=== PATIENT | male | born 1950 | race Caucasian/White ===

== ENCOUNTER → 2019-05-14 | Outpatient (CLI) | payer MEDICARE ==
--- NOTE | 2019-05-14 17:37 | RAD ---
MR of the left shoulder HISTORY: Left shoulder contusion. TECHNIQUE: Routine multiplanar sequences are obtained. COMPARISON: None FINDINGS: Acromioclavicular joint is mildly degenerative. Rotator cuff tendinosis with thickening and signal. Partial-thickness articular side tear of the supraspinatus tendon has a linear morphology, measuring about 1 cm AP diameter and at least 90% of the rotator cuff thickness, coronal images 13 through 16. No retraction. Bursal surface irregularity/fraying. Subscapularis tendinosis with partial tearing. Trace subdeltoid bursal effusion. Abnormal signal involving most of the labrum, compatible with a circumferential or nearly circumferential degeneration and tearing. Biceps tendinosis. Cystic-type changes identified at the humeral head and greater tuberosity, likely reactive or degenerative. No aggressive bone destruction. No acute fracture. No acute soft tissue abnormality. IMPRESSION: 1. Generalized rotator cuff tendinosis. Very deep articular side tear of the anterior supraspinatus tendon, possibly full-thickness, but without retraction partial subscapularis tendon tear. 2. Circumferential or nearly circumferential labral degeneration and tearing. Electronically signed by: Josh Wheeler MD (05/14/2019 5:34 PM) [facility]
== END | disposition home or self-care (01) ==
LOC: MRI 15:01
PROVIDERS: ATTEND Orthopaedic Surgery
DX: S46.012A Strain of muscle(s) and tendon(s) of the rotator cuff of left shoulder, initial encounter (principal); M19.012 Primary osteoarthritis, left shoulder; X58.XXXA Exposure to other specified factors, initial encounter; Y93.89 Activity, other specified; Y92.89 Other specified places as the place of occurrence of the external cause; Y99.8 Other external cause status
CPT/HCPCS: 73221

== ENCOUNTER → 2019-08-06 | Outpatient (CLI) | payer MEDICARE ==
[~2019-08-06] MED LIST: REGADENOSON 0.4 MG/5 ML DISP.SYRIN. IV ONE
--- NOTE | 2019-08-15 13:14 | RAD ---
MR#: [id number] Account#: Date of Study: 08/06/2019 Ordering Physician: ROBERTO MUNIZ, Referring Physician: CHRISTOPHER GRANADOS Tech: RT Dana Casanova) (N) APPROVED REPORT Test Type: Pharmacological Stress Nurse/Tech: Yasemin Amaya RN Test Indications: Shortness of air with minimal exertion, preop clearance for shoulder surgery Cardiac History: Family history, Diabetes Medications: See Electronic Medical Record Medical History: See Electronic Medical Record Resting ECG: SR with BBB Resting Heart Rate: 89 bpm Resting Blood Pressure: 151/81mmHg Pretest Chest Pain: No chest pain Nurse/Tech Notes S1,S2 and lungs clear to auscultation. Consent: The procedure was explained to the patient in lay terms. Informed consent was witnessed. Olvin eout was entered into [employer] 1. History and Stress Test performed by RT Dana Nicholas) (N) Pharm. Details Pharmacologic stress testing was performed using 0.4mg per 5ml of regadenoson given intravenously ove r 7-10 seconds. Stress Symptoms Dizziness POST EXERCISE Reason for Termination: Infusion complete Target HR: No Max HR: 112 bpm 88% of Maximum Predicted HR: 127 bpm Max Blood Pressure: 161/81mmHg Blood Pressure response to exercise: Normal blood pressure response during stress. Heart Rate response to exercise: WNL Chest Pain: No. Arrhythmia: No. INTERPRETATION Stress EKG Conclusion: The resting EKG shows sinus rhythm with mild nonspecific ST-T wave changes. The stress EKG shows no significant changes from baseline. No EKG evidence of stress-induced ischemia. Imaging Protocol IMAGE PROTOCOL: Rest Tc-99m/stress Tc-99m 1 day Rest: Stress: Viability: Radiopharm.Tc99m QalavnfzzTl21s Sestamibi Dose10.0mCi 30.0mCi Duration 15min. 15min. Img Date 08/06/2019 08/06/2019 Inj-Img Czyi93afq. 45min. Rest Admin Site:IV - Right AntecubitalAdministrator:RT Dana Casanova)(N) Stress Admin Site: IV - Right AntecubitalAdministrator: Delmar Marcano, RT (R)(N) STRESS DATA End Diast. Vol.93.0mlAv. Heart Rate91.0bpm End Syst. Vol.30.0mlCO Index BSA0.0L/min Myocardial Noxl156.0gEject. Ljgyeyzd90.0% Stress Rates Pk. Fill Rate3.07EDV/secLVtime Pk. Fill 69.06msec Pk. Empty Rate4.82ESV/secLVtime Pk. Hdshb825.99msec /3 Pk. Fill2.16EDV/sec Stress Scores Regional WT2.00Summed WT11.00 Regional WM0.00Summed WM4.00 LV Perfusion The stress scans showed no significant defects. The rest scans showed no significant defects. Nuclear imaging shows no reversible ischemia or infarct. Wall Motion Left ventricular systolic function is normal with an ejection fraction of 68%. LV Perf. Quant 17 Seg. SSS2.00 17 Seg. SRS7.00 17 Seg. SDS0.00 Stress Defect Extent (% LAD)0.00Rest Defect Extent (% LAD)16.30Rev. Defect Extent (% LAD)0.00 Stress Defect Extent (% LCX) 5.00Rest Defect Extent (% LCX)12.50Rev. Defect Extent (% LCX)0.00 Stress Defect Extent (% RCA)0.00Rest Defect Extent (% RCA)0.00Rev. Defect Extent (% RCA)0.00 Stress Defect Extent (% RIKA)1.10Rest Defect Extent (% RIKA)11.10Rev. Defect Extent (% RIKA)0.00 Conclusion 1. No EKG evidence of stress-induced ischemia. 2. Nuclear imaging shows no reversible ischemia or infarct. 3. Normal left ventricular systolic function with an ejection fraction of 68%. 4. Low risk Lexiscan nuclear stress test. Signed by : Giovanni Proctor MD Electronically Approved : 08/06/2019 12:57:33
== END | disposition home or self-care (01) ==
LOC: NM 09:06
PROVIDERS: ATTEND Internal Medicine Cardiovascular Disease
DX: Z01.810 Encounter for preprocedural cardiovascular examination (principal); E11.9 Type 2 diabetes mellitus without complications
CPT/HCPCS: 78452; 93017; A9500; J2785

== ENCOUNTER → 2019-11-13 | Outpatient (CLI) | payer MEDICARE ==
--- NOTE | 2019-11-13 14:20 | CARD ---
MR#: [id number] Date of Study: 11/13/2019 Ordering Physician: ROBERTO MUNIZ, Referring Physician: ROBERTO MUNIZ, Tech: Betzaida Emmanuel APPROVED REPORT EXAM: Two-dimensional and M-mode echocardiogram with Doppler and color Doppler. Other Information Quality : AverageHR: 71bpm INDICATION Pre-Op RISK FACTORS Hyperlipidemia Diabetes 2D DIMENSIONS RVDd2.8 (2.9-3.5cm)Left Atrium(2D)2.9 (1.6-4.0cm) IVSd1.2 (0.7-1.1cm)Aortic Root(2D)3.0 (2.0-3.7cm) LVDd4.3 (3.9-5.9cm)LVOT Diameter1.9 (1.8-2.4cm) PWd1.0 (0.7-1.1cm)LVDs3.1 (2.5-4.0cm) FS (%) 26.8 %SV43.7 ml LVEF(%)52.6 (>50%) Aortic Valve AoV Peak Larry.95.5cm/sAoV VTI17.3cm AO Peak GR.3.6mmHgLVOT Peak Larry.84.6cm/s LVOT VTI 16.34cmAO Mean GR.2mmHg MONIKA (VMAX)1.45zz1SMG (VTI)2.76cm2 Mitral Valve MV E Evntjabm15.0cm/sMV DECEL [id number] MV A Hwvlpzwu55.0cm/sMV E Mean Gr.1mmHg MV HSQ37ndW/A Ratio0.8 MVA (PHT)2.42cm2 TDI E/Lateral E'6.2E/Medial E'7.6 Pulmonary Valve PV Peak Vkfaoifp86.2cm/sPV Peak Grad.3mmHg Tricuspid Valve TR P. Vmyeihec532iz/sRAP YSOUKPCM3wtZh TR Peak Gr.72ucMhNYRZ09lrCc LEFT VENTRICLE The left ventricle is normal size. There is borderline to mild concentric left ventricular hypertroph y. The left ventricular systolic function is normal and the ejection fraction is within normal range. The Ejection Fraction is 50-55%. There is normal LV segmental wall motion. Transmitral Doppler flow pattern is Grade I-abnormal relaxation pattern. RIGHT VENTRICLE The right ventricle is normal size. There is normal right ventricular wall thickness. The right ventr icular systolic function is normal. ATRIA The left atrium size is normal. The right atrium size is normal. The interatrial septum is intact wit h no evidence for an atrial septal defect or patent foramen ovale as noted on 2-D or Doppler imaging. AORTIC VALVE The aortic valve is calcified but opens well. Doppler and Color Flow revealed trace aortic regurgitat ion. There is no significant aortic valvular stenosis. MITRAL VALVE The mitral valve is normal in structure and function. There is no evidence of mitral valve prolapse. There is no mitral valve stenosis. Doppler and Color-flow revealed trace mitral regurgitation. TRICUSPID VALVE The tricuspid valve is normal in structure and function. Doppler and Color Flow revealed trace tricus pid regurgitation with an estimated PAP of 40 mmHg. There is no tricuspid valve stenosis. PULMONIC VALVE The pulmonic valve is not well visualized. Doppler and Color Flow revealed no pulmonic valvular regur gitation. There is no pulmonic valvular stenosis. GREAT VESSELS The aortic root is normal in size. The IVC was not visualized. PERICARDIAL EFFUSION There is no evidence of significant pericardial effusion. Critical Notification Critical Value: No <Conclusion> The left ventricular systolic function is normal and the ejection fraction is within normal range. Th e Ejection Fraction is 50-55%. There is normal LV segmental wall motion. Signed by : Cornelius Brown, Electronically Approved : 11/13/2019 14:19:35
== END | disposition home or self-care (01) ==
LOC: ECHO 08:49
PROVIDERS: ATTEND Internal Medicine Cardiovascular Disease
DX: Z01.818 Encounter for other preprocedural examination (principal); I35.8 Other nonrheumatic aortic valve disorders; E11.8 Type 2 diabetes mellitus with unspecified complications; E78.5 Hyperlipidemia, unspecified
CPT/HCPCS: 93306

== ENCOUNTER → 2020-01-04 | Outpatient (CLI) | payer MEDICARE ==
[~2020-01-04] MED LIST changes: +ASPI-630 PO; +CRAN1CAP12 PO; +GLIM4TAB8 PO; +INSU100V37 SQ; +LIRA0.6P2 SQ; +LOVA20TA2 PO; +METF10007 PO; +MULT-735 PO; +OMEG1CAP43 PO; +OXYC1TAB19 PO; -REGADENOSON 0.4 MG/5 ML DISP.SYRIN. IV ONE
== END | disposition home or self-care (01) ==
LOC: LAB 14:02
PROVIDERS: ATTEND Orthopaedic Surgery
DX: Z01.818 Encounter for other preprocedural examination (principal); Z11.59 Encounter for screening for other viral diseases; S43.432A Superior glenoid labrum lesion of left shoulder, initial encounter; M75.112 Incomplete rotator cuff tear or rupture of left shoulder, not specified as traumatic; X58.XXXA Exposure to other specified factors, initial encounter; Y93.89 Activity, other specified; Y92.89 Other specified places as the place of occurrence of the external cause; Y99.8 Other external cause status
CPT/HCPCS: U0003-CS

== ENCOUNTER 2020-01-08 06:10 | Day surgery (SDC) | payer MEDICARE ==
[~2020-01-08 06:10] MED LIST changes: -OXYC1TAB19 PO
[2020-01-08] MEDS ORDERED: INSULIN LISPRO 100 UNIT/ML 3ML VIAL for OP,RR ONLY. SQ PRN (06:30)
[2020-01-08] MEDS ORDERED: HYDROmorphone 2 MG/ML VIAL IV PRN (07:00)
[2020-01-08] MEDS ORDERED: IV RINGERS,LACTATED 1000ML 1,000 ML IV SCH (07:00)
[2020-01-08] MEDS ORDERED: ONDANSETRON PF 4 MG/2 ML VIAL. IV PRN (07:00)
[2020-01-08] MEDS ORDERED: MORPHINE SULFATE 2 MG/ML VIAL. IV PRN (07:00)
[2020-01-08] MEDS ORDERED: fentaNYL PF VIAL 100 MCG/2 ML VIAL IV PRN ×2 (07:00)
[2020-01-08] MEDS ORDERED: PROCHLORPERAZINE 10 MG/2 ML VIAL. IV PRN (07:00)
[2020-01-08] MEDS ORDERED: LIDOCAINE 1% PF 2 ML VIAL. ID PRN (07:00)
[2020-01-08] MEDS ORDERED: SUCCINYLCHOLINE 200 MG/10 ML VIAL. ONE (07:04)
[2020-01-08] MEDS ORDERED: LIDOCAINE 2% PF 5 ML VIAL. ONE (07:04)
[2020-01-08] MEDS ORDERED: ROCURONIUM 50 MG/5 ML VIAL. ONE (07:04)
[2020-01-08] MEDS ORDERED: ONDANSETRON PF 4 MG/2 ML VIAL. ONE (07:04)
[2020-01-08] MEDS ORDERED: DEXAMETHASONE SOD PHOS 4 MG/ML VIAL ONE (07:04)
[2020-01-08] MEDS ORDERED: fentaNYL PF VIAL 100 MCG/2 ML VIAL ONE (07:04)
[2020-01-08] MEDS ORDERED: PROPOFOL 10 MG/ML (20ML) VIAL. IV ONE (07:04)
[2020-01-08] MEDS ORDERED: MIDAZOLAM HCL/PF 2 MG/2 ML VIAL. ONE (07:09)
[2020-01-08] MEDS ORDERED: EPINEPHrine VIAL 30 MG/30 ML VIAL ONE (07:10)
[2020-01-08] MEDS ORDERED: INSULIN LISPRO 100 UNIT/ML 3ML VIAL for OP,RR ONLY. SQ ONE (07:10)
[2020-01-08] MEDS ORDERED: BUPIVACAINE MPF 0.5% 30 ML VIAL. ONE (07:10)
[2020-01-08] MEDS ORDERED: PHENYLEPHRINE in 0.9% NACL PF 1 MG/10 ML SYRINGE. IV ONE (08:17)
[2020-01-08] MEDS ORDERED: NEOSTIGMINE METHYLSULFATE 5 MG/5 ML SYRINGE. ONE (08:17)
[2020-01-08] MEDS ORDERED: ePHEDrine PF IN SALINE 50 MG/10 ML SYRINGE. IV ONE (08:17)
[2020-01-08] MEDS ORDERED: GLYCOPYRROLATE 1 MG/5 ML VIAL. ONE (08:17)
[2020-01-08] MEDS ORDERED: OXYC1TAB19 PO (09:34)
--- NOTE | 2020-01-08 09:36 | DISCH ---
DISCHARGE INSTRUCTIONS Condition on Discharge Condition on Discharge: Stable Activity After Discharge Activity Instructions for Disc: Other, see below (Active range of motion pe rmitted in rehab, 5 pound elbow flexion lifting limit) Weight Bearing Status after Di: As tolerated Diet after Discharge Diet after Discharge: Diabetic No Calorie Level Wound Incision Care Wound/Incision Care: Ice to area for comfort, Change dressing (Remove dressing in 2 days may then shower, report any wound redness or persistent drainage) Community/Resources/Services Services at Discharge: PT EVALUATE & TREAT (Prescription written, recommended [facility] rehab in [place] phone #[phone]) Contacting the after DC Call your doctor for: Concerns you may have Follow-Up Follow up with: Dr. Marie 1 week ITZEL MARIE MD Jan 08, 2020 09:36
[2020-01-08] MEDS ORDERED: oxyCODONE/APAP 7.5/325 1 TAB TABLET PO ONE (09:45)
--- NOTE | 2020-01-08 09:47 | PDOC4 ---
Operative Note Operative Note Date of surgery: 01/08/2020 Preoperative diagnosis: Partial-thickness rotator cuff tear and SLAP tear left shoulder Postoperative diagnosis: Same with extensive labral fraying and partial rotator cuff tear involving about 20% of thickness Operative procedure: Left shoulder arthroscopy biceps tenodesis, extensive debridement of partial-thickness rotator cuff tear labrum and glenoid Surgeon: Frank Communication Technician: Efra Gonzalez nurse practitioner Anesthesia: General plus scalene block Estimated blood loss: 15 cc Complications: None Operative indications: Please see my preoperative history and physical and clinic notes for detailed operative indications Operative text: Patient was identified procedure verified patient placed in the supine position on the operating table. After adequate amounts of general anesthesia plus a pre-existing scalene block were obtained, he was placed in the decubitus position left side up all bony prominences were well-padded and the left shoulder was examined under anesthesia found to have full range of motion and no instability. The left shoulder was then prepped and draped in the standard sterile fashion and placed in the arthroscopic arm rock with a total of 10 pounds of traction. after timeout was performed patient procedure identified and verified, standard posterior portal was established an anterior portal established using spinal needle localization and the shoulder joint was systematically examined. He was noted to have extensive labral fraying around the entire periphery and this was debrided back to stable tissue with the arthroscopic shaver and electrocautery and a SLAP tear type II was noted with significant biceps irritation. The biceps was tagged and tenotomized and debridement carried out of a partial-thickness undersurface tear of the supraspinatus which involved about 20% of the tendon thickness at both the insertion as well as intrasubstance. He also had a glenoid cartilage defect it was trimmed back to stable tissue and not full-thickness in nature. Capsule ligamentous structures were noted to be in good condition and a normal bare area of the humerus was noted. Subacromial space was then entered and bursa was cleared to allow visualization and the rotator cuff was checked in all degrees of internal and external rotation and found to be intact and just irritated on the bursal side. Biceps was retrieved through an anterior portal and fixated with a Recommendo bolt in the superior portion of the groove which was drilled to 7 mm diameter to 20 mm depth and an 8 mm peek screw obtained excellent fixation with the long head biceps adequately tensioned. The joint was then drained of arthroscopic fluid portals closed with nylon suture sterile dressings were applied he was placed in an immobilizer returned to recovery room in stable condition having tolerated the procedure well. Efra Gonzalez nurse practitioner was present for the procedure assisted in the patient positioning prepping draping retraction and closure ITZEL ALMEIDA MD Jan 08, 2020 09:47
[2020-01-08 10:00] VITALS: BP 160/86
[2020-01-08] MEDS ORDERED: SEVOFLURANE 61 TO 120 MINUTES. IH ONE (11:51)
== END 2020-01-08 10:30 | disposition home or self-care (01) ==
LOC: SURG 06:10
PROVIDERS: ATTEND Orthopaedic Surgery
DX: S43.432A Superior glenoid labrum lesion of left shoulder, initial encounter (principal); M75.112 Incomplete rotator cuff tear or rupture of left shoulder, not specified as traumatic; E78.5 Hyperlipidemia, unspecified; E11.9 Type 2 diabetes mellitus without complications; Z79.82 Long term (current) use of aspirin; Z79.84 Long term (current) use of oral hypoglycemic drugs; Z79.899 Other long term (current) drug therapy; X58.XXXA Exposure to other specified factors, initial encounter; Y93.89 Activity, other specified; Y92.89 Other specified places as the place of occurrence of the external cause; Y99.8 Other external cause status
CPT/HCPCS: 29823; 29828; 64415; 82962; A7015; C1713; J0171; J0330; J0690; J1100; J1815; J2250; J2370; J2405; J2704; J2710; J3010; J3490; J7120